=== PATIENT | female | born 1985 | race Caucasian/White ===

== ENCOUNTER 2017-09-12 06:43 | Inpatient (IN) | payer SELFPAY ==
--- NOTE | 2017-09-12 07:07 | PCM.LDHP ---
L&D History of Present Illness - General Date of Service: 09/12/17 Admit Problem/Dx: Admission Diagnosis/Problem Admission Diagnosis/Problem 09/12/17 06:56 41-0/7 week intrauterine , medical induction of labor Source of Information: Patient History Limitations: Reports: No Limitations - History of Present Illness Introduction:: Haydee Is a 31-year-old 2 para 1001 white female who is admitted on 09/12 for medical induction of labor at 41-0/7 weeks gestational age. She has an JULIA of 08/28/2017 as based upon a certain laststarting 11/29/2017 and supported by ultrasound done 04/19/2017. Patient has had a previous section therefore will undergo artificial rupture membranes/Pitocin induction of labor. The procedure, risks, benefits, limitations, follow-up and alternatives including waiting for natural labor or section are all discussed in detail patient. She appears to understand, wish to proceed and is willing to undergo the precautionary steps usually taken with patients. We' ll be GEN history 2 para 1001. Certain laststart 11/29/2016 last for approximate 6 days. Patient has menses on acute 28 day basis. She started periods at age 12. Not on oral contraceptives at time of her LMP. Her obstetric history includes a delivery of a male infant weighing 5 lbs. 14 oz. after 39 weeks gestation on 05/16/2015. Child's name is Tulio. Patient not at any STI's or abnormal Pap smears in the past. Present course first visit was on 04/22/2017 at which time she had reported quickening at 17 weeks. Fundal height consistent with dates. She weighed approximately 172.8 pounds and increased up to 195 pounds for a 23 pound weight gain. Her vital signs are stable throughout the course and her fundal height growth was appropriate. Cervix on last evaluation clinic was 2+ centimeters, 80% effaced, -3 station, very soft, mid position. Vision plans to breast-feed. She declined genetic testing. Group B strep screen was negative. T dap was administered on 06/18/2007. Laboratory testing and shows blood to be B+. Antibody screen is negative. Initial hemoglobin first visit 13.4 g/dL. Platelets are 229, 000. Pap smear negative. Rubella titer showed immunity. RPR is nonreactive. Hepatitis B surface antigen evaluation was negative as was the HIV assay. Gonorrhea and chlamydia were both negative. TSH was 2.20 mU/mL. Second trimester labs showed hemoglobin 11.5 g/dL which time she was started on iron supplementation. Her platelets were 192,000. Diabetic screen was normal at 105. Group B strep screen was negative. Allergies sulfur which causes fever and rash. Medications: 1. vitamins 1 daily and prepped 2. Occasional iron therapy. Past medical history: Unremarkable Past surgical history: 1. section for nonreassuring heart tones 2015 2. Gallbladder surgery 2005 3. Eye muscle surgery as child. Family history: Mother is alive and well but with balance problems related to Chiari 1 malformation. Father secondary to bone cancer at age 26. Sisters alive and well. Maternal grandmother secondary to adult-onset diabetic complications. Maternal grandfather alive and well. Paternal grandmother is alive and well. Grandfather alive with history of multiple MIs. No , bleeding, clotting or anesthesia problems noted. Twins 2 sets are noted in the family. 2 cousins with Down syndrome. Cleft palate in 1 cousin. Social history: Patient is . Patient works at [employer]. She does not use any significant most alcohol, drugs or tobacco. is Ronal. In [place] with her . Review of systems: General patient is feeling baby move well has no complaints of significance. Skin: Negative Cardiovascular: No chest pain or exercise intolerance Respiratory: No shortness of breath or infectious symptoms Breasts: Changes size secondary . Patient does plan to nurse. GI: Negative : Fundal height increase in body habitus changes consistent with term Musculoskeletal: Occasional swelling in lower extremities bilaterally Neurological: Negative. Physical exam: In general patient is well-developed, well-nourished, pleasant female of stated age in no acute distress. Pregravid weight was 170, height 5 feet 5 inches, body mass index 26. Most recent blood pressure is 116/80, weight 195 pounds, fundal height 41 cm and heart rate 134. Skin is warm and dry without lesions HEENT, neck and back within normal limits Lungs are clear with good breath sounds in all lung mccauley. Breast exam is deferred having been done at first visit and found to be normal. Abdomen is consistent with term with fundal height 41 cm. Baby in vertex presentation. Cervical exam as described above Is and neurological exam grossly within normal limits. - Related Data Allergies/Adverse Reactions: Allergies Allergy/AdvReac Type Severity Reaction Status Date / Time squash Allergy Hives Verified 08/03/15 09:21 Sulfa (Sulfonamide Allergy Rash Verified 08/03/15 09:21 Antibiotics) Home Medications: Home Meds L.acidoph,Paracasei, B.lactis [Probiotic] 1 each PO DAILY 05/16/15 [History] Past Medical History - Infectious Disease History Infectious Disease History: Reports: Chicken Pox - Past Surgical History Female Surgical History: Reports: Section H&P Review of Systems - Review of Systems: Review Of Systems: See Below L&D Exam - Exam Exam: See Below Problem List Initiated/Reviewed/Updated: Yes Assessment/Plan Comment:: 1.41-0/7 week intrauterine , admitted for medical induction of labor 2. History of previous section done for nonreassuring heart tones. Patient is a good candidate for trial of labor after section for vaginal after section. The procedure, risks, benefits, alternatives of care including awaiting natural labor and a repeat section are discussed in detail patient. She is understanding of these and does wish to proceed with an attempted vaginal after section. She is aware of the precautionary steps usually taken for patient's attempting . 3. Patient is desiring epidural in labor and delivery 4. B+ blood 5. Patient is planning to breast-feed Plan: 1. Rupture of membranes/Pitocin induction of labor and routine precautionary measures for a trial of labor patient attempting 2. Precautionary measures include obtaining labs - type and screen, consent for trial of labor/ and for repeat section, near continuous monitoring of heart tones, will alert anesthesia and surgery department sent patient attempting a vaginal after section is in labor. 3. Epidural when necessary for analgesia in labor 4. Routine labor care otherwise.
[2017-09-12] MEDS ORDERED: Lidocaine 1% 50 ML MDV INJECT ONE (07:11)
[2017-09-12] MEDS ORDERED: Sodium Chloride 0.9% 10 ML Syringe FLUSH PRN (07:11)
[2017-09-12] MEDS ORDERED: Oxytocin/Lactated Ringers 10 UNIT/1,000 ML BAG IV SCH (07:15)
[2017-09-12] MEDS: Oxytocin/Lactated Ringers 10 UNIT/1,000 ML BAG IV SCH ×2 (08:00→18:48)
[2017-09-12] MEDS: Lactated Ringers 1,000 ML IV SCH ×4 (08:00→21:15)
[2017-09-12] MEDS ORDERED: ePHEDrine 50 MG/ML SDV IVPUSH PRN (19:33)
[2017-09-12] MEDS ORDERED: Ondansetron 4 MG/2 ML SDV IVPUSH PRN (19:33)
[2017-09-12] MEDS ORDERED: fentaNYL 100 MCG/2 ML SDV EPIDUR PRN (19:33)
[2017-09-12] MEDS ORDERED: diphenhydrAMINE 50 MG/ML SDV IVPUSH PRN (19:33)
[2017-09-12] MEDS ORDERED: Bupivacaine/fentaNYL/NS 100 ML Bag EPIDUR SCH (19:45)
[2017-09-12] MEDS ORDERED: Bupivacaine 0.25% 10 ML SDV ONE (22:00)
[2017-09-12] MEDS ORDERED: Citric Acid/Sodium Citrate Solution 30 ML Cup ONE (23:12)
[2017-09-12] MEDS ORDERED: Metoclopramide 10 MG/2 ML SDV ONE (23:12)
[2017-09-12] MEDS ORDERED: Citric Acid/Sodium Citrate Solution 30 ML Cup PO ONE (23:14)
[2017-09-12] MEDS ORDERED: Metoclopramide 10 MG/2 ML SDV IVPUSH ONE (23:14)
[2017-09-12] MEDS ORDERED: Morphine PF 10 MG/10 ML SDV ONE (23:18)
[2017-09-12] MEDS ORDERED: Lidocaine 2% with EPINEPHrine 1:200,000 20 ML SDV ONE (23:19)
[2017-09-12] MEDS ORDERED: Ondansetron 4 MG/2 ML SDV ONE (23:19)
[2017-09-12] MEDS ORDERED: Sodium Bicarbonate 8.4% 50 MEQ/50 ML SDV ONE (23:19)
[2017-09-12] MEDS ORDERED: Oxytocin 10 Units/1 ML SDV ONE (23:19)
[2017-09-12] MEDS ORDERED: Ketorolac 30 MG/ML SDV ONE (23:19)
--- NOTE | 2017-09-12 23:22 | PCM.SN ---
- Free Text/Narrative Note: Was called to see the patient at approximateley 2305 hrs. on 09/12/2017 for concerns about a sudden increase in left-sided suprapubic pain in the patient Kristen change in the strength of her contractions as evidence by an intrauterine pressure catheter. Concern is over possible separation uterine scar causing both changes. On evaluation patient has some discomfort in the left side of her lower uterine area. No increased bleeding is noted. Her cervix is approximate 4 cm, 80% effaced and -3 station, mid position, cephalic presentation. heart tones are excellent with good variability, no decelerations whatsoever. Pitocin is discontinued. Discussion is held with patient as to her pain and potential for separation uterine scar. She's been assessed of this risk before. She feels that the pain is 6-8 on a scale 10 at this time despite having an epidural in place and receiving adequate analgesia from this is prior to the onset of this change in contractions and discomfort. I discussed with patient findings and the potential for uterine scar separation and recommend that patient undergo repeat lower uterine segment transverse section through her old Pfannenstiel skin scar. Procedure, risks, benefits are again discussed in detail. She appears to understand and wishes to proceed. She has signed a consent for the surgery at this time. Assessment: 1. Change in labor pattern with a decrease in objectively evaluated uterine strength with contractions, associated with increased pain in the left side of the uterus with concern over possible separation of the uterine scar. 2. heart tones reassuring 3. Epidural placed 4. Bladder Catheter in place 5. SCDs in place Plan: 1. Repeat lower uterine segment transverse section through Franciscan' s incision. 2. Ancef 2 g IV preop 3. Reglan per protocol 4. Bicitra per protocol 5. Sponge Fisherman to be present for surgery.
[2017-09-12] MEDS ORDERED: ceFAZolin 1 GM Vial ONE (23:23)
[2017-09-12] MEDS ORDERED: Bupivacaine 0.5% 30 ML SDV ONE (23:27)
[2017-09-12] MEDS ORDERED: Propofol 200 MG/20 ML SDV ONE (23:47)
[2017-09-12] MEDS ORDERED: fentaNYL 250 MCG/5 ML SDV ONE (23:48)
[2017-09-13] MEDS ORDERED: Meperidine PF 50 MG/ML Syringe ONE (00:31)
--- NOTE | 2017-09-13 00:50 | PCM.PREANE ---
Preanesthetic Assessment - Procedure Proposed Procedure: ELIZABETH - Anesthesia/Transfusion/Family Hx Anesthesia History: Prior Anesthesia Without Reaction Family History of Anesthesia Reaction: No Transfusion History: No Prior Transfusion(s) - Review of Systems General: No Symptoms Pulmonary: No Symptoms Cardiovascular: No Symptoms Gastrointestinal: No Symptoms Neurological: No Symptoms Other: Reports: None - Physical Assessment NPO Status Date: 09/12/17 NPO Status Time: 17:00 Pulse: 71 O2 Sat by Pulse Oximetry: 98 Respiratory Rate: 18 Blood Pressure: 120/68 Vital Signs: Last Vital Signs Temp 36.4 C 09/12/17 07:11 Pulse 71 09/12/17 16:04 Resp 18 09/12/17 07:11 BP 120/68 09/12/17 16:04 Pulse Ox 98 09/12/17 07:53 Height: 1.65 m Weight: 88.451 kg ASA Class: 2 Mental Status: Alert & Oriented x3 Airway Class: Mallampati = 1 Dentition: Reports: Normal Dentition Thyro-Mental Finger Breadths: 3 Mouth Opening Finger Breadths: 3 ROM/Head Extension: Full Lungs: Clear to Auscultation, Normal Respiratory Effort Cardiovascular: Regular Rate, Regular Rhythm - Lab Values: Laboratory Last Values WBC 6.79 K/mm3 (3.98-10.04) 09/12/17 07:49 RBC 3.98 M/mm3 (3.98-5.22) 09/12/17 07:49 Hgb 11.9 gm/L (11.2-15.7) 09/12/17 07:49 Hct 36.1 % (34.1-44.9) 09/12/17 07:49 MCV 90.7 fl (79.4-94.8) 09/12/17 07:49 MCH 29.9 pg (25.6-32.2) 09/12/17 07:49 MCHC 33.0 g/dl (32.2-35.5) 09/12/17 07:49 RDW Std Deviation 43.0 fL (36.4-46.3) 09/12/17 07:49 Plt Count 188 K/mm3 (182-369) 09/12/17 07:49 MPV 11.2 fl (9.4-12.3) 09/12/17 07:49 Neut % (Auto) 50.2 % (34.0-71.1) 09/12/17 07:49 Lymph % (Auto) 30.8 % (19.3-51.7) 09/12/17 07:49 [place] % (Auto) 10.9 % (4.7-12.5) 09/12/17 07:49 Eos % (Auto) 6.8 (0.7-5.8) H 09/12/17 07:49 Baso % (Auto) 0.4 % (0.1-1.2) 09/12/17 07:49 Neut # (Auto) 3.41 K/mm3 (1.56-6.13) 09/12/17 07:49 Lymph # (Auto) 2.09 K/mm3 (1.18-3.74) 09/12/17 07:49 [place] # (Auto) 0.74 K/mm3 (0.24-0.36) H 09/12/17 07:49 Eos # (Auto) 0.46 K/mm3 (0.04-0.36) H 09/12/17 07:49 Baso # (Auto) 0.03 K/mm3 (0.01-0.08) 09/12/17 07:49 RPR Non-reactive (NONREACTIVE) 09/12/17 07:49 Blood Type B POSITIVE 09/12/17 07:49 Gel Antibody Screen Negative 09/12/17 07:49 - Allergies Allergies/Adverse Reactions: Allergies Allergy/AdvReac Type Severity Reaction Status Date / Time squash Allergy Hives Verified 08/03/15 09:21 Sulfa (Sulfonamide Allergy Rash Verified 08/03/15 09:21 Antibiotics) - Blood Blood Available: No Product(s) Available: None - Anesthesia Plan Pre-Op Medication Ordered: None - Acknowledgements Anesthesia Type Planned: Epidural Pt an Appropriate Candidate for the Planned Anesthesia: Yes Alternatives and Risks of Anesthesia Discussed w Pt/Guardian: Yes Pt/Guardian Understands and Agrees with Anesthesia Plan: Yes PreAnesthesia Questionnaire HEENT History: Reports: Impaired Vision Other HEENT History: wears contacts or glasses for correction Gastrointestinal History: Reports: None Genitourinary History: Reports: None TOOL OR DIE DRAWING CHECKER History: Reports: - Infectious Disease History Infectious Disease History: Reports: Chicken Pox - Past Surgical History HEENT Surgical History: Reports: Eye Surgery Other HEENT Surgeries/Procedures: strabismus repair as a child GI Surgical History: Reports: Cholecystectomy Other GI Surgeries/Procedures: 2006 Female Surgical History: Reports: Section Other Female Surgeries/Procedures: 2016 - SUBSTANCE USE Smoking Status *Q: Never Smoker Second Hand Smoke Exposure: No Recreational Drug Use History: No - HOME MEDS Home Medications: Home Meds L.acidoph,Paracasei, B.lactis [Probiotic] 1 each PO DAILY 05/16/15 [History] Vit W-Ca,Fe,FA(<1 mg) [ Vitamins] 1 each PO BEDTIME 09/12/17 [ History] - CURRENT (IN HOUSE) MEDS Current Meds: Current Medications Diphenhydramine HCl (Benadryl) 25 mg IVPUSH Q6H PRN PRN Reason: Pruritis Ephedrine Sulfate (Ephedrine Sulfate) 5 mg IVPUSH ASDIRECTED PRN PRN Reason: Hypotension Fentanyl (Sublimaze) 100 mcg EPIDUR Q3H PRN PRN Reason: Pain Last Admin: 09/12/17 20:57 Dose: 100 mcg Fentanyl/Bupivacaine HCl (Fentanyl/Bupivacaine/Ns 2 Mcg-0.125% 100 Ml) 100 ml EPIDUR ASDIRECTED MARLA Last Admin: 09/12/17 20:57 Dose: 100 ml Lactated Ringer's (Ringers, Lactated) 1,000 mls @ 100 mls/hr IV ASDIRECTED MARLA Last Admin: 09/12/17 21:15 Dose: 100 mls/hr Oxytocin/Lactated Ringer's (Pitocin In Lr 10 Units/1,000 Ml) 10 unit in 1,000 mls @ 12 mls/hr IV TITRATE MARLA; Protocol Last Admin: 09/12/17 18:48 Dose: 20 munits/min, 120 mls/hr Oxytocin/Lactated Ringer's (Pitocin In Lr 10 Units/1,000 Ml) 10 unit in 1,000 mls @ 100 mls/hr IV .CONTINUOUS MARLA Ondansetron HCl (Zofran) 4 mg IVPUSH ONETIME PRN PRN Reason: Nausea/Vomiting Sodium Chloride (Saline Flush) 10 ml FLUSH ASDIRECTED PRN PRN Reason: Keep Vein Open Discontinued Medications Bupivacaine HCl (Marcaine 0.5%) Confirm Administered Dose 30 ml .ROUTE .STK-MED ONE Stop: 09/12/17 23:28 Cefazolin Sodium (Ancef) Confirm Administered Dose 2 gm .ROUTE .STK-MED ONE Stop: 09/12/17 23:24 Citric Acid/Sodium Citrate (Bicitra Solution) Confirm Administered Dose 30 ml .ROUTE .STK-MED ONE Stop: 09/12/17 23:13 Last Admin: 09/12/17 23:16 Dose: 30 ml Citric Acid/Sodium Citrate (Bicitra Solution) 30 ml PO ONETIME ONE Stop: 09/12/17 23:15 Fentanyl (Sublimaze) Confirm Administered Dose 250 mcg .ROUTE .STK-MED ONE Stop: 09/12/17 23:49 Ketorolac Tromethamine (Toradol) Confirm Administered Dose 30 mg .ROUTE .STK- MED ONE Stop: 09/12/17 23:20 Lidocaine HCl (Xylocaine 1%) 10 ml INJECT ONETIME ONE Stop: 09/12/17 07:12 Lidocaine/Epinephrine (Xylocaine-Mpf 2%-Epi 1:200,000) Confirm Administered Dose 20 ml .ROUTE .STK-MED ONE Stop: 09/12/17 23:20 Meperidine HCl (Demerol) Confirm Administered Dose 50 mg .ROUTE .STK-MED ONE Stop: 09/13/17 00:32 Metoclopramide HCl (Reglan) Confirm Administered Dose 10 mg .ROUTE .STK-MED ONE Stop: 09/12/17 23:13 Last Admin: 09/12/17 23:16 Dose: 10 mg Metoclopramide HCl (Reglan) 10 mg IVPUSH ONETIME ONE Stop: 09/12/17 23:15 Morphine Sulfate (Duramorph Pf) Confirm Administered Dose 10 mg .ROUTE .STK-MED ONE Stop: 09/12/17 23:19 Ondansetron HCl (Zofran) Confirm Administered Dose 4 mg .ROUTE .STK-MED ONE Stop: 09/12/17 23:20 Oxytocin (Pitocin) Confirm Administered Dose 20 unit .ROUTE .STK-MED ONE Stop: 09/12/17 23:20 Propofol (Diprivan 20 Ml) Confirm Administered Dose 200 mg .ROUTE .STK-MED ONE Stop: 09/12/17 23:48 Sodium Bicarbonate (Sodium Bicarbonate 8.4%) Confirm Administered Dose 50 meq .ROUTE .STK-MED ONE Stop: 09/12/17 23:20
[2017-09-13] MEDS ORDERED: HYDROmorphone 0.5 MG/0.5 ML SYRINGE IV ONE (00:51)
[2017-09-13] MEDS ORDERED: Ondansetron 4 MG/2 ML SDV IVPUSH PRN (00:51)
[2017-09-13] MEDS ORDERED: diphenhydrAMINE 50 MG/ML SDV IVPUSH PRN ×2 (00:51→02:00)
[2017-09-13] MEDS ORDERED: fentaNYL 100 MCG/2 ML SDV IVPUSH PRN (00:51)
--- NOTE | 2017-09-13 00:51 | PCM.OPNOTE ---
- General Post-Op/Procedure Note Date of Surgery/Procedure: 09/13/17 Operative Procedure(s): Repeat lower uterine segment transverse section through Pfannenstiel skin incision Findings: Uterus, tubes and ovaries are normal and consistent with term . Baby in vertex presentation. Amniotic fluid clear. No evidence of uterine scar separation, bleeding or other concerns. 2 fibroids present in the anterior body of the uterus largest one 2 cm x 0.5 cm upper left fundal area other lower mid fundal area 1 cm in diameter. Pre Op Diagnosis: 1. 41-0/7 week intrauterine . 2. History of previous section with desire for VBACattempted but failed secondary to : Abrupt decrease in uterine contraction strength associated with an abrupt onset of left sided uterine scar pain. Suspected separation of uterine scar. Post-Op Diagnosis: Same with delivery of viable, 7 lbs. 8 oz. female with Apgars of 8 and 9 at 2354 hrs. on 09/12/2017 Anesthesia Technique: Epidural, General ET Tube Other Anesthesia Type: Local anesthesia with Marcaine 0.5%30 mL total Primary Surgeon: Moo Donis Secondary Surgeon: Mandi Kirkpatrick Anesthesia Provider: Romel Bal Engineering Program Analyst: Ramsey Gross (Attending mandarin tutor) Reason Engineering Program Analyst Was Necessary: Assistance, retraction, quality of care, patient safety Role of Engineering Program Analyst: Retraction, assistance Fluid Replacement, Intraop: 1,600 Output, Urine Amount: 200 EBL in mLs: 600 Drain/Tube Comments:: Indwelling bladder catheter Complications: None Condition: Good Free Text/Narrative:: Intake & Output 09/12/17 09/12/17 09/13/17 14:59 22:59 06:59 Intake Total 240 Balance 240 Surgery duration: 37 minutes Procedure: Patient was transferred to the room. The epidural which had been placed for analgesia in labor was bolstered anesthetic effect. The anesthesia however was not adequate and patient is feeling quite a bit of discomfort. Decision was made to put the patient to sleep. General endotracheal anesthesia was then undertaken. It should be noted the patient was placed in supine position with a wedge under her right side to facilitate left lateral positioning. The patient had already been prepped and draped in usual fashion and the Monahan catheter was already placed . 30 mL of Marcaine 0.5% had already been injected locally in the Pfannenstiel incision site. The Pfannenstiel skin incision was then made carried down to skin subcutaneous and fascial layers. The fascia was then undermined superiorly and inferiorly to allow for adequate operating room the recti muscles midline and preperitoneal fat was bluntly dissected. Peritoneal cavity was entered longitudinally. The vesicouterine peritoneum was then incised transversely and bladder flap was developed. Myometrium was incised transversely to the level of the amniotic sac. This incision was extended bilaterally in a blunt fashion. The amniotic sac was then ruptured resulting clear amniotic fluid. A hand is placed in the low uterine segment and the baby's head was brought forth through the incision. The baby was completely delivered using fundal pressure in a routine fashion. The nose and mouth were bulb suctioned. Baby's cord was clamped x2 cut and baby was handed off to attending mandarin tutor Dr Gross. Placenta was expressed after cord blood was obtained. Uterus was then exteriorized to allow for easier closure. The cervix was assessed and found to be dilated adequately to allow egress of blood. The uterus was closed in 2 layers. The first layer a running locked suture of 0 Monocryl, the second layer a running locked vertical mattress suture of 0 Monocryl. [id number] suture was placed at the left incision to control 1 bleeder. Hemostasis confirmed at this time. Sponge instrument needle counts are correct. The uterus was returned to the abdominal cavity and lateral gutters were cleared of blood. Once again sponge needle counts are correct. The anterior abdominal wall was closed with a #1 PDS suture from angle to angle. The subcutaneous area was found to be free of any bleeders. interrupted sutures of 3-0 Monocryl were used to reapproximate the subcutaneous layer.Skin was closed with a running subcuticular stitch of 3- 0 Monocryl in a vertical mattress suture fashion using a Anand needle. Prineo mesh/glue was then applied to further approximate the incision. It should be noted that patient received 2 g of Ancef preoperatively for infection prophylaxis and had Pitocin infused after delivery of the placenta to facilitate uterine contraction. She also had sequential compression stockings in place for DVT prophylaxis. Patient was discharged from the operating room in satisfactory condition.
--- NOTE | 2017-09-13 00:59 | PCM.POSTAN ---
POST ANESTHESIA ASSESSMENT - MENTAL STATUS Mental Status: Alert, Oriented - VITAL SIGNS Pulse Rate: 58 SaO2: 96 Resp Rate: 15 Blood Pressure: 113/74 Temperature: 37.4 C - RESPIRATORY Respiratory Status: Respiratory Rate WNL, Airway Patent, O2 Saturation Stable, Supplemental Oxygen - CARDIOVASCULAR CV Status: Pulse Rate WNL, Blood Pressure Stable - GASTROINTESTINAL GI Status: No Symptoms - PAIN Pain Score: 0 - POST OP HYDRATION Hydration Status: Adequate & Stable
[2017-09-13] MEDS ORDERED: Naloxone 0.4 MG/ML SDV IVPUSH PRN (02:00)
[2017-09-13] MEDS ORDERED: Ondansetron 4 MG/2 ML SDV IV PRN (02:00)
[2017-09-13] MEDS ORDERED: Dextrose 5%-Lactated Ringers 1,000 ML IV SCH (02:00)
[2017-09-13] MEDS ORDERED: ePHEDrine 50 MG/ML SDV IVPUSH PRN (02:00)
[2017-09-13] MEDS ORDERED: Docusate Sodium 100 MG Cap PO PRN (02:00)
[2017-09-13] MEDS ORDERED: Lanolin 100% Cream 7 GM Tube TOP PRN (02:00)
[2017-09-13] MEDS: Ibuprofen 800 MG Tab PO PRN ×2 (06:38→21:14)
[2017-09-13] MEDS: Simethicone 80 MG Tab.Chew PO SCH ×4 (09:08→21:15)
--- NOTE | 2017-09-13 09:12 | PCM48HPAN ---
Post Anesthesia Note - EVALUATION WITHIN 48HRS OF ANESTHETIC Vital Signs in Normal Range: Yes Patient Participated in Evaluation: Yes Respiratory Function Stable: Yes Airway Patent: Yes Cardiovascular Function Stable: Yes Hydration Status Stable: Yes Pain Control Satisfactory: Yes Nausea and Vomiting Control Satisfactory: Yes Mental Status Recovered: Yes Pulse Rate: 67 Resp Rate: 16 Temperature: 98.2 F Blood Pressure: 125/71
[2017-09-13] MEDS: Acetaminophen/oxyCODONE 325-5 MG Tab PO PRN ×3 (11:54→21:15)
--- NOTE | 2017-09-13 13:42 | PCM.SN ---
- Free Text/Narrative Note: note: Patient is doing well in the period on day postop day 2. Minimal lochia, voiding well, ambulated without problems. Nursing without concerns. Pain under reasonable control Patient is afebrile, vital signs are stable Abdomen is flat, soft, uterus is below the umbilicus and is firm and nontender. Incision appears intact and dry. Legs are nontender. Hemoglobin is 9.8, platelets are 157,000. Assessment: recovery going well. Plan: Routine care. Patient to be discharged home within the next 24-48 hours.
[2017-09-14] MEDS: Ibuprofen 800 MG Tab PO PRN (03:48)
[2017-09-14] MEDS: Acetaminophen/oxyCODONE 325-5 MG Tab PO PRN ×2 (03:50→10:11)
[2017-09-14] MEDS: Simethicone 80 MG Tab.Chew PO SCH (10:11)
[2017-09-14 12:31] VITALS: BP 118/79
== END 2017-09-14 10:20 | disposition home or self-care (01) | DRG 766 ==
LOC: JD.OB 07:03 → OBSVTOIN 23:54 → JD.OB 23:54
PROVIDERS: ADMIT Obstetrics & Gynecology; ATTEND Obstetrics & Gynecology
PROC: 10907ZC Drainage of Amniotic Fluid, Therapeutic from Products of Conception, Via Natural or Artificial Opening (ICD-10-PCS; 2017-09-12)
PROC: 3E033VJ Introduction of Other Hormone into Peripheral Vein, Percutaneous Approach (ICD-10-PCS; 2017-09-12)
PROC: 10H07YZ Insertion of Other Device into Products of Conception, Via Natural or Artificial Opening (ICD-10-PCS; 2017-09-12)
PROC: 00HU33Z Insertion of Infusion Device into Spinal Canal, Percutaneous Approach (ICD-10-PCS; 2017-09-12)
PROC: 3E0R3BZ Introduction of Anesthetic Agent into Spinal Canal, Percutaneous Approach (ICD-10-PCS; 2017-09-12)
PROC: 10D00Z1 Extraction of Products of Conception, Low, Open Approach (ICD-10-PCS; principal; 2017-09-13)
DX: O48.0 Post-term pregnancy (principal); Z3A.41 41 weeks gestation of pregnancy; Z37.0 Single live birth; O34.211 Maternal care for low transverse scar from previous cesarean delivery; N85.8 Other specified noninflammatory disorders of uterus; O75.89 Other specified complications of labor and delivery; Z88.2 Allergy status to sulfonamides; Z91.018 Allergy to other foods; Z90.49 Acquired absence of other specified parts of digestive tract
CPT/HCPCS: 36415; 51702; 59025; 85025; 86592; 86850; 86900; 86901; A9270-GY; J0690; J1885; J2175; J2270; J2405; J2590; J2704; J2765; J3010; J7042; J7120